=== PATIENT | male | born 1945 | race Caucasian/White ===

== ENCOUNTER → 2016-07-27 | Outpatient (CLI) | payer OTHER ==
[2015-02-07 11:07] VITALS: BP 133/76
[~2016-07-27] MED LIST: LEXISCAN IV ONE; PROVENTIL NEB TX 0.083% 2.5MG/ 3ML ONE
[2016-07-27] MEDS: PROVENTIL NEB TX 0.083% 2.5MG/ 3ML NEB ONE (13:30)
== END ==
LOC: RAD 08:41
PROVIDERS: ATTEND Surgery
DX: Z01.810 Encounter for preprocedural cardiovascular examination (principal); R42 Dizziness and giddiness; R51 Headache
CPT/HCPCS: 78452; 93017; 94060; 94729; A4222; A9502; J2785; J7613

== ENCOUNTER 2016-11-08 16:52 | Emergency (ER) | payer OTHER ==
[2016-11-08 16:58] VITALS: BP 133/76
[2016-11-08 17:03] VITALS: BMI 23.8
[2016-11-08] MEDS ORDERED: STERILE WATER IRRIGATION IR ONE (17:09)
--- NOTE | 2016-11-08 17:39 | RAD ---
HISTORY: pain Study: PEG tube placement Comparison: None Findings: Approximately 50 cc of Gastrografin was injected in the patient's PEG tube and a KUB was obtained . There is a PEG tube localized along the left upper quadrant with contrast seen extending into a loop of small bowel in the area. There is no extravasation seen. The gas pattern is unremarkable. No breanna al stones are seen. IMPRESSION: PEG tube along the left upper quadrant which appears within a loop of small bowel along the left upp er quadrant. Nonspecific gas pattern. Reported By:
--- NOTE | 2016-11-08 18:12 | DR.GENAD ---
HPI - PCP Primary Care Physician: ANAND - HPI Comment HPI Comment: PATIENT LIGALLY BLIND. SIZE 14F PEG TUBE CAME OUT. DENIES PAIN. - Complaint/Symptoms Chief Complaint Doctors Comments: FEEDING TUBE FELL OUT AT HOME SHORTLY BEFORE COMING TO ED. Chief Complaint:: PATIENT STATED HE WAS AT HOME AND ROLLED OVER AND HIS FEEDING TUBE FELL OUT. - Nurses notes reviewed Nurses Notes Review: Yes - Source History Provided: Patient - Mode of Arrival Mode of Arrival: Ambulatory - Timing Onset of Chief Complaint: 11/08/16 Came on: Suddenly - Duration Duration: Since Onset Duration: Hours - Severity Severity: Moderate PMH - PMH Past Medical History: Yes Past Medical History: Diabetes, Hypertension Past Surgical History: No Past Surgical History Comment: FEEDING TUBE PLACEMENT, CHEST TUBE - Family History History of Family Medical Conditions: Yes Family Medical History: Diabetes Mellitus, Hypertension - Social History Does patient currently use any type of tobacco product: No Have you used tobacco products in the last 12 months: No Type of Tobacco Use: None Does any household member use tobacco: Yes Alcohol Use: None Do you use any recreational Drugs:: No Lives With: Family Lives Where: Home - infectious screening In the last 2 months have you had wt loss of >10#?: NO Have you had fever, night sweats or hemotysis?: No Have you traveled outside the country in the last 6 months?: No Isolation: Standard ROS - Review of Systems Constitutional: No Symptoms Reported Eyes: Other (BLIND) ENTM: No Symptoms Reported Respiratoy: No Symptoms Reported Cardiovascular: No Symptoms Reported Gastrointestinal/Abdominal: Other (PEG TUBE OUT.) Genitourinary: No Symptoms Reported Neurological: No Symptoms Reported Musculoskeletal: No Symptoms Reported Integumentary: No Symptoms Reported Hematologic/Lymphatic: No Symptoms Reported Endocrine: No Symptoms Reported All Other Systems: Reviewed and Negative PE - Vital Signs Vitals: Blood Pressure 133/76 - General Limitations: No Limitations General Appearance: Alert - Head Head Exam: Normal Inspection - Eyes Eye exam: Normal Appearance (BLINDNESS.), Other - ENT ENT Exam: Normal External Ear Exam External Ear Exam: Normal External Inspection Throat Exam: Normal Inspection - Neck Neck Exam: Trachea Midline - Chest Chest Inspection: Symmetric Chest Wall Rise - Respiratory Respiratory Exam: Normal Lung Sounds Bilat Respiratory Exam: Bilateral Clear to Auscultation - Cardiovascular Cardiovascular Exam: Regular Rate, Normal Rhythm, Normal Heart Sounds - Abdominal Exam Abdominal Exam: Normal Bowel Sounds, Soft. negative: Tenderness - Extremities Extremities Exam: Normal Inspection - Back Back Exam: Normal Inspection - Neurologic Neurological Exam: Alert, Oriented X3 - Psychiatric Psychiatric Exam: Normal Affect - Skin Skin Exam: Normal Color MDM - Additional Information Additional Information Obtained From: Family - Differential Diagnosis Differential Diagnosis: PEG TUBE OUT. Course - Treatment Treatment: SEE ORDERS. PEG TUBE SIZE 14F INSERTED BY NURSE. GASTROGRAFIN KUB, TUBE IN PLACE. - Reevaluation 1st: Improved - Education/Counseling Education/Counseling: Patient, Family, Education Educated On: Diagnosis, Needs for Follow Up ROR - XRAY XRAY Interpreted by: Radiologist XRAY Findings: PEG TUBE IN PLACE. - Diagnosis Discharge Problem: PEG tube malfunction - Discharge Plan Disposition: 01 HOME, SELF-CARE Condition: Stable - Follow ups/Referrals Follow ups/Referrals: YONNY MICHEL [Primary Care Provider] - 3 days - Instructions Instructions: Gastrostomy Tube Replacement, Care After Additional Instructions: RETURN TO ED IF WORSE.
== END 2016-11-08 18:33 | disposition home or self-care (01) ==
LOC: ER 17:07
PROC: 0D20XUZ Change Feeding Device in Upper Intestinal Tract, External Approach (ICD-10-PCS; principal; 2016-11-08)
DX: K94.23 Gastrostomy malfunction (principal)
CPT/HCPCS: 74000; 99282; A4217

== ENCOUNTER → 2016-11-30 | Outpatient (CLI) | payer OTHER ==
[2016-11-08 16:58] VITALS: BP 133/76
[2016-11-30 10:00] LABS: ALANINE AMINOTRANSFERASE 26 Units/L (12-78); ALBUMIN 3.2 g/dL (3.4-5.0); ALKALINE PHOSPHATASE 83 Units/L (46-116); ASPARTATE AMINO TRANSFERASE 20 Units/L (15-37); BLOOD UREA NITROGEN 8 mg/dL (7-18); CALCIUM 8.6 mg/dL (8.5-10.1); CARBON DIOXIDE 32.2 mmol/L (21-32); CHLORIDE 101 mmol/L (98-107); COR CA(FOR HYPOALB) 9.2 mg/dL (8.5-10.1); COR NA(FOR HYPERGLY) 139 mmol/L (136-145); CREATININE 0.63 mg/dL (0.70-1.30); GLUCOSE 187 mg/dL (65-99); SODIUM 137 mmol/L (136-145); eGFR BLACK RACES > 60 (>60); eGFR NON BLACK RACES > 60 (>60)
[2016-11-30 11:00] LABS: BASOPHILS % (AUTO) 0.6 % (0.2-1.0); EOSINOPHILS # (AUTO) 0.1 x10^3/uL (0.0-0.2); EOSINOPHILS % (AUTO) 2.1 % (0.9-2.9); HEMATOCRIT 39.8 % (42.0-54.0); HEMOGLOBIN 13.3 g/dL (13.5-18.0); LYMPHOCYTES # (AUTO) 1.1 X10^3/uL (1.3-2.9); LYMPHOCYTES % (AUTO) 18.7 % (21.0-51.0); MEAN CORPUSCULAR HEMOGLOBIN 27.1 pg (27.0-34.0); MEAN CORPUSCULAR HGB CONC 33.5 g/dL (33.0-35.0); MEAN PLATELET VOLUME 8.1 fL (7.4-11.0); MONOCYTES # (AUTO) 0.6 x10^3/uL (0.3-0.8); MONOCYTES % (AUTO) 9.5 % (0.0-13.0); NEUTROPHILS # (AUTO) 4.1 x10^3/uL (2.2-4.8); NEUTROPHILS % (AUTO) 69.1 % (42.0-75.0); PLATELET COUNT 279 X10^3/uL (150.0-450.0); RED BLOOD COUNT 4.91 X10^6/uL (4.7-6.0); RED CELL DISTRIBUTION WIDTH 15.1 % (11.6-16.5); WHITE BLOOD COUNT 5.9 X10^3/uL (3.6-10.0)
== END ==
LOC: LAB 08:57
PROVIDERS: ATTEND Internal Medicine Hematology & Oncology
DX: C15.5 Malignant neoplasm of lower third of esophagus (principal)
CPT/HCPCS: 36415; 80053; 85025

== ENCOUNTER 2017-01-14 07:44 | Day surgery (SDC) | payer OTHER ==
[2017-01-14] MEDS ORDERED: D5 LR 1000 ML 1,000 ML IV ONE (07:46)
[2017-01-14] MEDS ORDERED: DIPRIVAN VIAL 20 ML ONE (09:24)
[2017-01-14 10:35] VITALS: BP 115/74
== END 2017-01-14 10:05 | disposition home or self-care (01) ==
LOC: SURG1 07:44
PROVIDERS: ATTEND Internal Medicine Gastroenterology
PROC: 0DJ08ZZ Inspection of Upper Intestinal Tract, Via Natural or Artificial Opening Endoscopic (ICD-10-PCS; principal; 2017-01-14 09:45)
PROC: 0DB58ZX Excision of Esophagus, Via Natural or Artificial Opening Endoscopic, Diagnostic (ICD-10-PCS; principal; 2017-01-14 09:45)
PROC: 0D757ZZ Dilation of Esophagus, Via Natural or Artificial Opening (ICD-10-PCS; principal; 2017-01-14 09:45)
DX: Z85.01 Personal history of malignant neoplasm of esophagus (principal); K21.9 Gastro-esophageal reflux disease without esophagitis; B37.81 Candidal esophagitis; Z90.49 Acquired absence of other specified parts of digestive tract; K22.2 Esophageal obstruction; K22.8 Other specified diseases of esophagus; K29.60 Other gastritis without bleeding
CPT/HCPCS: A4217; J3490; J7120

== ENCOUNTER 2017-04-14 12:50 | Inpatient (IN) | payer OTHER ==
--- NOTE | 2017-04-14 13:06 | DR.EXTPAIN ---
HPI - Time seen Time seen: 13:05 - PCP Primary Care Physician: Morgan MICHEL RN - HPI Comment HPI Comment: WORSE TODAY. DIFFICULTY WALKING. NO FEVER. C SLIGHT DRAINAGE BETWEEN TOES. - Complaint/Symptoms Chief Complaint Doctor Comments: PAIN, REDNESS LEFT FOOT WITH ULCER AND NECRITIC TISSUES BETWEEN TOES TIMES 2 WEEKS. Chief Complaint:: PT. C/O LEFT FOOT PAIN AND SWELLING. DENINES INJURY. - Nurses notes reviewed Nurses Notes Review: Yes - Source History Provided: Patient - Mode of arrival Mode of Arrival: Wheelchair - Timing Onset of Chief Complaint: 03/31/17 - Context History of: None - Associated signs and symptoms Associated Signs and Symptoms: Pain PMH - PMH Past Medical History: Yes Past Medical History: Diabetes, Hypertension Past Medical History Comment: ESOPHAGEAL CANCER Past Surgical History: Yes Past Surgical History Comment: CANCER REMOVAL - Family History History of Family Medical Conditions: Yes Family Medical History: Diabetes Mellitus, Hypertension - Social History Does patient currently use any type of tobacco product: No Have you used tobacco products in the last 12 months: No Type of Tobacco Use: None Does any household member use tobacco: No Alcohol Use: None Do you use any recreational Drugs:: No Lives With: Spouse Lives Where: Home - infectious screening In the last 2 months have you had wt loss of >10#?: NO Have you had fever, night sweats or hemotysis?: No Have you traveled outside the country in the last 6 months?: No Isolation: Standard ROS - Review of Systems Constitutional: Weakness, Fatigue. negative: Chills, Fever Eyes: negative: Eye Pain, Discharge ENTM: negative: Ear Pain, Nose Discharge, Nose Congestion, Throat Pain Respiratoy: Short of Breath (ON EXERTION). negative: Productive Cough, Wheezing , Hemoptysis Cardiovascular: No Symptoms Reported Gastrointestinal/Abdominal: No Symptoms Reported Genitourinary: No Symptoms Reported Neurological: Weakness Musculoskeletal: Left, Foot Integumentary: Change in Color, Lesions, Wound (LT FOOT) Endocrine: negative: Flushing, Increased Thirst, Increased Urine All Other Systems: Reviewed and Negative PE - Vital Signs Vitals: Temperature 97.3 F Pulse Rate [Left Brachial] 101 Pulse Rate 116 Respiratory Rate 17 Blood Pressure [Left Arm] 117/77 Blood Pressure 97/58 O2 Sat by Pulse Oximetry 99 - General Limitations: No Limitations General Appearance: Alert - Head Head Exam: Normal Inspection - Eyes Eye exam: Normal Appearance - ENT ENT Exam: Normal External Ear Exam - Neck Neck Exam: Normal Inspection - Chest Chest Inspection: Symmetric Chest Wall Rise - Respiratory Respiratory Exam: Normal Lung Sounds Bilat Respiratory Exam: Bilateral Rhonchi, Upper Rhonchi, Lower Rhonchi - Cardiovascular Cardiovascular Exam: Regular Rate, Normal Rhythm, Normal Heart Sounds - Abdominal Exam Abdominal Exam: Normal Bowel Sounds, Soft. negative: Tenderness - Extremities Extremities Exam: Tenderness (ULCERS WEB SPACES WITH REDNESS LT FOOT.) - Back Back Exam: Normal Inspection - Neurological Neurological Exam: Alert, Oriented X3 - Psychiatric Psychiatric Exam: Normal Affect, Normal Mood - Skin Skin Exam: Erythema Type of Lesion: Other (ULCERS BETWEEN TOES.) MDM - Differential Diagnosis Differential Diagnosis: Other (OSTEOMYELITIS, DIABETIC FOOT ULCER, CELLULITIS.) Course - Treatment Treatment: SEE ORDERS. - Consultation Consultation Comments: DISCUSS PATIENT WITH DR. TEE. HE WILL ADMIT HIM TO HOSPITAL. - Education/Counseling Education/Counseling: Patient, Family, Education Educated On: Treatment, Diagnosis, Needs for Follow Up ROR - Labs Reviewed Laboratory Results Reviewed?: Yes Result Diagrams: 04/18/17 05:20 04/18/17 05:20 Laboratory: 04/14/17 13:26 Blood Blood Culture - Preliminary 04/14/17 13:20 Blood Blood Culture - Preliminary WBC 9.5 X10^3/uL (3.6-10.0) 04/18/17 05:20 RBC 3.76 X10^6/uL (4.7-6.0) L 04/18/17 05:20 Hgb 11.3 g/dL (13.5-18.0) L 04/18/17 05:20 Hct 31.8 % (42.0-54.0) L 04/18/17 05:20 MCV 84.7 fL (80.0-100.0) 04/18/17 05:20 MCH 30.0 pg (27.0-34.0) 04/18/17 05:20 MCHC 35.4 g/dL (33.0-35.0) H 04/18/17 05:20 RDW 13.7 % (11.6-16.5) 04/18/17 05:20 Plt Count 370 X10^3/uL (150.0-450.0) 04/18/17 05:20 MPV 7.1 fL (7.4-11.0) L 04/18/17 05:20 Neut % 83.0 % (42.0-75.0) H 04/18/17 05:20 Lymph % 7.9 % (21.0-51.0) L 04/18/17 05:20 [place] % 8.4 % (0.0-13.0) 04/18/17 05:20 Eos % 0.4 % (0.9-2.9) L 04/18/17 05:20 Baso % 0.3 % (0.2-1.0) 04/18/17 05:20 Neut # 7.9 x10^3/uL (2.2-4.8) H 04/18/17 05:20 Lymph # 0.8 X10^3/uL (1.3-2.9) L 04/18/17 05:20 [place] # 0.8 x10^3/uL (0.3-0.8) 04/18/17 05:20 Eos # 0.0 x10^3/uL (0.0-0.2) 04/18/17 05:20 Baso # 0.0 X10^3/uL (0.0-0.1) 04/18/17 05:20 Absolute Nucleated RBC 0.0 /100WBC 04/18/17 05:20 INR Target Range - 04/15/17 14:02 INR 1.22 (0.8-1.3) 04/15/17 14:02 PTT 39.1 SECONDS (22.9-36.5) H 04/15/17 14:02 PTT Comment - 04/15/17 14:02 Sodium 140 mmol/L (136-145) 04/18/17 05:20 Corrected Sodium TNP 04/18/17 05:20 Potassium 3.1 mmol/L (3.5-5.1) L 04/18/17 05:20 Chloride 104 mmol/L (98-107) 04/18/17 05:20 Carbon Dioxide 27.9 mmol/L (21-32) 04/18/17 05:20 BUN 4 mg/dL (7-18) L 04/18/17 05:20 Creatinine 0.49 mg/dL (0.70-1.30) L 04/18/17 05:20 Est GFR (MDRD) Af Amer > 60 (>60) 04/18/17 05:20 Est GFR (MDRD) Non-Af > 60 (>60) 04/18/17 05:20 Glucose 79 mg/dL (65-99) 04/18/17 05:20 POC Glucose (mg/dL) 78 mg/dL (65-99) 04/18/17 06:27 Lactic Acid 2.0 mmol/L (0.4-2.0) 04/14/17 13:20 Calcium 7.9 mg/dL (8.5-10.1) L 04/18/17 05:20 Corrected Calcium 9.7 mg/dL (8.5-10.1) 04/18/17 05:20 Magnesium 1.5 mg/dL (1.7-2.9) L 04/18/17 05:15 Total Bilirubin 0.60 mg/dL (0.2-1.0) 04/18/17 05:20 AST 22 Units/L (15-37) 04/18/17 05:20 ALT 11 Units/L (12-78) L 04/18/17 05:20 Alkaline Phosphatase 98 Units/L (46-116) 04/18/17 05:20 C-Reactive Protein 65.20 mg/L (0-3.0) H 04/14/17 13:20 Total Protein 5.2 g/dL (6.4-8.2) L 04/18/17 05:20 Albumin 1.7 g/dL (3.4-5.0) L 04/18/17 05:20 Globulin 3.5 g/dL (2.5-4.5) 04/18/17 05:20 Albumin/Globulin Ratio 0.5 Ratio (1.1-2.1) L 04/18/17 05:20 Vancomycin Trough 12.1 ug/mL (15-20) L 04/17/17 09:00 Acetone, Semi-Quant Negative (NEGATIVE) 04/14/17 13:20 - XRAY XRAY Interpreted by: Radiologist XRAY Findings: REPORT DISCUSS WITH PATIENT. - Diagnosis Discharge Problem: Diabetic infection of left foot Cellulitis Qualifiers: Site of cellulitis: extremity Site of cellulitis of extremity: lower extremity Laterality: left Qualified Code(s): L03.116 - Cellulitis of left lower limb - Discharge Plan Disposition: ADMITTED INPATIENT Condition: Stable - Follow ups/Referrals - Instructions
[2017-04-14 13:36] LABS: BASOPHILS % (AUTO) 0.2 % (0.2-1.0); EOSINOPHILS % (AUTO) 0.3 % (0.9-2.9); HEMATOCRIT 38.3 % (42.0-54.0); HEMOGLOBIN 13.1 g/dL (13.5-18.0); LYMPHOCYTES # (AUTO) 0.8 X10^3/uL (1.3-2.9); LYMPHOCYTES % (AUTO) 6.3 % (21.0-51.0); MEAN CORPUSCULAR HEMOGLOBIN 29.4 pg (27.0-34.0); MEAN CORPUSCULAR HGB CONC 34.1 g/dL (33.0-35.0); MEAN CORPUSCULAR VOLUME 86.2 fL (80.0-100.0); MEAN PLATELET VOLUME 7.3 fL (7.4-11.0); MONOCYTES % (AUTO) 8.3 % (0.0-13.0); NEUTROPHILS # (AUTO) 10.5 x10^3/uL (2.2-4.8); NEUTROPHILS % (AUTO) 84.9 % (42.0-75.0); PLATELET COUNT 387 X10^3/uL (150.0-450.0); RED BLOOD COUNT 4.45 X10^6/uL (4.7-6.0); RED CELL DISTRIBUTION WIDTH 13.5 % (11.6-16.5); WHITE BLOOD COUNT 12.4 X10^3/uL (3.6-10.0)
[2017-04-14 13:46] LABS: ALANINE AMINOTRANSFERASE 17 Units/L (12-78); ALBUMIN 2.3 g/dL (3.4-5.0); ALKALINE PHOSPHATASE 149 Units/L (46-116); ASPARTATE AMINO TRANSFERASE 21 Units/L (15-37); BLOOD UREA NITROGEN 7 mg/dL (7-18); CALCIUM 8.4 mg/dL (8.5-10.1); CARBON DIOXIDE 31.5 mmol/L (21-32); CHLORIDE 101 mmol/L (98-107); COR CA(FOR HYPOALB) 9.8 mg/dL (8.5-10.1); COR NA(FOR HYPERGLY) 140 mmol/L (136-145); CREATININE 0.64 mg/dL (0.70-1.30); SODIUM 138 mmol/L (136-145); TOTAL PROTEIN 5.9 g/dL (6.4-8.2); eGFR BLACK RACES > 60 (>60); eGFR NON BLACK RACES > 60 (>60)
[2017-04-14] MEDS: NS 1000 ML 1,000 ML IV SCH (13:52)
--- NOTE | 2017-04-14 13:53 | RAD ---
Examination: Left foot, three views History: Pain and swelling, no injury, diabetes Findings: Osteopenia and soft tissue swelling. No acute fracture, dislocation, erosive arthropathy or bone destruction. There is no evidence for osteomyelitis at this time. Impression: Nonspecific soft tissue swelling and osteopenia. Reported By:
[2017-04-14] MEDS ORDERED: ZOSYN VIAL 3.375 GM 3.375 GM in NS 100 ML IV + SPIKE MINIBAG* 100 ML IV ONE (13:54)
[2017-04-14] MEDS ORDERED: ZOSYN VIAL 3.375 GM IV ONE (14:11)
[2017-04-14] MEDS ORDERED: NS 100 ML IV + SPIKE MINIBAG* 100 ML IV ONE (14:11)
[2017-04-14] MEDS ORDERED: PHARMACY CONSULT - VANCOMYCIN XX SCH (15:00)
[2017-04-14] MEDS ORDERED: VANCOMYCIN 1 GM PREMIX (ADDVANTAGE) 250 ML IV ONE (17:54)
[2017-04-14] MEDS: VANCOMYCIN HCL 1 GM VIAL 1 GM in D5W 250 ML IV 250 ML IV SCH ×2 (18:01→21:11)
[2017-04-14] MEDS: ZOSYN VIAL 3.375 GM 3.375 GM in NS 100 ML IV 100 ML IV SCH (21:20)
[2017-04-15 05:03] LABS: BASOPHILS % (AUTO) 0.3 % (0.2-1.0); EOSINOPHILS % (AUTO) 0.3 % (0.9-2.9); HEMATOCRIT 34.6 % (42.0-54.0); HEMOGLOBIN 12.1 g/dL (13.5-18.0); LYMPHOCYTES # (AUTO) 0.7 X10^3/uL (1.3-2.9); LYMPHOCYTES % (AUTO) 6.2 % (21.0-51.0); MEAN CORPUSCULAR HEMOGLOBIN 30.1 pg (27.0-34.0); MEAN CORPUSCULAR HGB CONC 35.2 g/dL (33.0-35.0); MEAN CORPUSCULAR VOLUME 85.7 fL (80.0-100.0); MEAN PLATELET VOLUME 7.7 fL (7.4-11.0); MONOCYTES % (AUTO) 9.4 % (0.0-13.0); NEUTROPHILS # (AUTO) 9.1 x10^3/uL (2.2-4.8); NEUTROPHILS % (AUTO) 83.8 % (42.0-75.0); PLATELET COUNT 326 X10^3/uL (150.0-450.0); RED BLOOD COUNT 4.03 X10^6/uL (4.7-6.0); RED CELL DISTRIBUTION WIDTH 13.8 % (11.6-16.5); WHITE BLOOD COUNT 10.9 X10^3/uL (3.6-10.0)
[2017-04-15 05:13] LABS: ALANINE AMINOTRANSFERASE 8 Units/L (12-78); ALBUMIN 1.9 g/dL (3.4-5.0); ALKALINE PHOSPHATASE 131 Units/L (46-116); ASPARTATE AMINO TRANSFERASE 18 Units/L (15-37); BLOOD UREA NITROGEN 8 mg/dL (7-18); CALCIUM 8.1 mg/dL (8.5-10.1); CARBON DIOXIDE 31.2 mmol/L (21-32); CHLORIDE 103 mmol/L (98-107); COR CA(FOR HYPOALB) 9.8 mg/dL (8.5-10.1); COR NA(FOR HYPERGLY) 139 mmol/L (136-145); CREATININE 0.65 mg/dL (0.70-1.30); SODIUM 138 mmol/L (136-145); TOTAL PROTEIN 5.2 g/dL (6.4-8.2); eGFR BLACK RACES > 60 (>60); eGFR NON BLACK RACES > 60 (>60)
[2017-04-15] MEDS: ZOSYN VIAL 3.375 GM 3.375 GM in NS 100 ML IV 100 ML IV SCH ×3 (05:38→22:14)
[2017-04-15] MEDS: NS 1000 ML 1,000 ML IV SCH ×2 (05:38→17:16)
[2017-04-15] MEDS: ZOFRAN INJ 4 MG VIAL IVP PRN ×2 (07:23→13:24)
[2017-04-15] MEDS: VANCOMYCIN HCL 1 GM VIAL 1 GM in NS 250 ML IV 250 ML IV SCH ×3 (09:41→22:14)
[2017-04-15 10:20] VITALS: BMI 17.6
[2017-04-15] MEDS: HEPARIN SODIUM INJ 5000 UNITS SC SCH ×2 (14:30→22:16)
[2017-04-15] MEDS: COLACE CAP 100 MG PO SCH ×2 (22:10→22:16)
[2017-04-15] MEDS: LINZESS PO STA ×2 (22:11→22:12)
[2017-04-16 05:10] LABS: BASOPHILS % (AUTO) 0.3 % (0.2-1.0); HEMATOCRIT 31.4 % (42.0-54.0); HEMOGLOBIN 10.9 g/dL (13.5-18.0); LYMPHOCYTES # (AUTO) 0.7 X10^3/uL (1.3-2.9); LYMPHOCYTES % (AUTO) 6.6 % (21.0-51.0); MEAN CORPUSCULAR HEMOGLOBIN 29.9 pg (27.0-34.0); MEAN CORPUSCULAR HGB CONC 34.7 g/dL (33.0-35.0); MEAN CORPUSCULAR VOLUME 86.1 fL (80.0-100.0); MEAN PLATELET VOLUME 7.5 fL (7.4-11.0); MONOCYTES # (AUTO) 0.7 x10^3/uL (0.3-0.8); MONOCYTES % (AUTO) 7.1 % (0.0-13.0); NEUTROPHILS # (AUTO) 8.6 x10^3/uL (2.2-4.8); PLATELET COUNT 338 X10^3/uL (150.0-450.0); RED BLOOD COUNT 3.64 X10^6/uL (4.7-6.0); RED CELL DISTRIBUTION WIDTH 13.6 % (11.6-16.5)
[2017-04-16 05:35] LABS: ALANINE AMINOTRANSFERASE 12 Units/L (12-78); ALBUMIN 1.7 g/dL (3.4-5.0); ALKALINE PHOSPHATASE 114 Units/L (46-116); ASPARTATE AMINO TRANSFERASE 18 Units/L (15-37); BLOOD UREA NITROGEN 10 mg/dL (7-18); CALCIUM 7.6 mg/dL (8.5-10.1); CHLORIDE 104 mmol/L (98-107); COR CA(FOR HYPOALB) 9.4 mg/dL (8.5-10.1); CREATININE 0.54 mg/dL (0.70-1.30); SODIUM 138 mmol/L (136-145); eGFR BLACK RACES > 60 (>60); eGFR NON BLACK RACES > 60 (>60)
[2017-04-16] MEDS: NS 1000 ML 1,000 ML IV SCH (06:18)
[2017-04-16] MEDS: ZOSYN VIAL 3.375 GM 3.375 GM in NS 100 ML IV 100 ML IV SCH ×3 (06:21→21:19)
[2017-04-16] MEDS ORDERED: HIBICLENS WASH ONE (09:23)
[2017-04-16] MEDS: HEPARIN SODIUM INJ 5000 UNITS SC SCH ×2 (10:38→21:21)
[2017-04-16] MEDS: VANCOMYCIN HCL 1 GM VIAL 1 GM in NS 250 ML IV 250 ML IV SCH ×2 (10:39→21:18)
--- NOTE | 2017-04-16 15:57 | DR.CONSULT ---
Consult - Consultation for Day of: Date: 04/16/17 - Chief Complaint Chief Complaint: Left foot pain and edema. - Allergies Allergies/Adverse Reactions: Allergies Allergy/AdvReac Type Severity Reaction Status Date / Time No Known Drug Allergies Allergy Verified 04/14/17 15:16 - History of Present Illness History of Present Illness: The patient is a 71 year old male who presented to the hospital with worsening left foot pain. The stated the foot became edematous and red a few days prior to arrival. Initially, there was no drainage but now a small amount was noted at dressing changes. The patient denies any trauma. (-) h/o PAD. (+) DM. The patient did fall and injure left knee but denies any skin break at foot. XR's in the ER failed to demonstrate any OM. The patient has been admitted and started on IV abx. - Past Medical History Past Medical History: Diabetes, Hypertension - Past Surgical History Surgical History: Other - Family History Family Medical History: Diabetes Mellitus, Cancer, Hypertension - Social History Does patient currently use any type of tobacco product: No Have you used tobacco products in the last 12 months: No Type of Tobacco Use: None Does any household member use tobacco: Yes (GIRLFRIEND) Alcohol Use: None Drug Use: Prescription Drugs - Medications Home Medications: Ferrous Sulfate 325 mg PO BID 04/14/17 [History Confirmed 04/14/17] Lisinopril [ZESTRIL *] 10 mg PO DAILY 04/14/17 [History Confirmed 04/14/17] Lorazepam [Ativan] 0.5 mg PO HS PRN 04/14/17 [History Confirmed 04/14/17] Metoprolol Tartrate [Lopressor Tab 25 mg] 12.5 mg PO BID 04/14/17 [History Confirmed 04/14/17] Oxycodone HCl [ROXICODONE TAB 5 MG (PLAIN) *] 5 mg PO Q8H PRN 04/14/17 [History Confirmed 04/14/17] - Review of Systems Constitutional: No Symptoms Reported Eyes: Other (Vision impaired.) Respiratory: No Symptoms Reported Cardiovascular: No Symptoms Reported Gastrointestinal: No Symptoms Reported Genitourinary: No Symptoms Reported Musculoskeletal: Leg Pain, Foot Pain Skin: Wound, Ecchymosis Neurological: No Symptoms Reported - Physical Exam Vital Signs: Temperature 98.5 F Pulse Rate [Right Brachial] 91 Pulse Rate [Left Brachial] 87 Pulse Rate 116 Respiratory Rate 18 Blood Pressure [Right Arm] 124/57 Blood Pressure [Left Arm] 131/74 Blood Pressure 97/58 O2 Sat by Pulse Oximetry 98 Oriented: Normal Respiratory: Clear Throughout Cardiovascular: Normal Auscultation: Bowel Sounds: Normal Palpation: Normal Tenderness: Normal Skin: Red (Left dorsal foot distally, near 1-3 metatarsals - mild.), Tender ( Left great toe.), Bruising (Interdigit spaces left 1-3 toes.), Other (Cap refill < 3 seconds. Left femoral artery palp. but DP and PT difficult to palpate. ) Musculoskeletal: Normal Psychiatric: Normal Mood Description: Calm Affect: Normal Speech Pattern: Clear, Appropriate - Plan Plan: 71 year old male with DM and left foot cellulitis. XR's (-) for OM. No obvious abscess or drainable fluid collection. Ecchymoses noted interdigit space. Great toe significantly TTP. Recommend continuation IV abx, MRI to r/o OM, and local wound care / clean skin with chlorhexidine daily. Hopefully no need for surgical intervention. Await further imaging. Tight blood sugar control. Consider lower extremity arterial u/s but usually microvascular disease in diabetics.
[2017-04-16] MEDS: NORCO 5/325 MG TAB PO PRN (16:34)
[2017-04-16] MEDS: MORPHINE SULFATE INJ 2 MG INJ IVP PRN (17:25)
--- NOTE | 2017-04-16 19:36 | MRI ---
MRI of the left forefoot with and without gadolinium. Indication: Swelling of the forefoot with pain. Technique: Multiplanar MRI images of the left foot was obtained with and without gadolinium. Findings: There is fluid with fatty atrophy seen within multiple muscles involving the hind and foref oot. There is a split tear of the inframalleolar peroneal brevis tendon with associated tenosynovitis . The peroneal longus tendon shows no tear but there is tenosynovitis. There is overlying edema. The posterior tibia, flexor digitorum longus and flexor hallucis tendons appear intact. There is incomple te fat saturation of the forefoot on axial imaging which limits evaluation however there does not skye ear to be any evidence of osteomyelitis seen on the sagittal T1 sequences. Anterior and posterior tib iofibular and talofibular ligaments appear intact. There is no fracture. No abnormal enhancement is s een. Conclusion: 1. Split tear of the intermalleolar peroneal brevis tendon with associated tenosynovitis. 2. Diffuse fatty atrophy with muscle edema involving the forefoot. This could be secondary to disuse or denervation. 3. No evidence of osteomyelitis or abscess. Reported By:
[2017-04-16 20:54] LABS: CREATININE 0.46 mg/dL (0.70-1.30)
[2017-04-16] MEDS: COLACE CAP 100 MG PO SCH (20:59)
[2017-04-16 21:16] LABS: VANCOMYCIN,TROUGH 24.8 ug/mL (15-20)
[2017-04-17] MEDS: ZOSYN VIAL 3.375 GM 3.375 GM in NS 100 ML IV 100 ML IV SCH ×3 (05:54→21:32)
[2017-04-17] MEDS: NORCO 5/325 MG TAB PO PRN (09:22)
[2017-04-17] MEDS: HEPARIN SODIUM INJ 5000 UNITS SC SCH ×2 (09:23→21:35)
[2017-04-17 09:47] LABS: CREATININE 0.58 mg/dL (0.70-1.30); VANCOMYCIN,TROUGH 12.1 ug/mL (15-20)
[2017-04-17] MEDS: VANCOMYCIN HCL IV SCH ×2 (10:59→21:32)
[2017-04-17] MEDS: NS IV SCH ×2 (10:59→21:32)
[2017-04-17] MEDS: COLACE CAP 100 MG PO SCH (21:35)
[2017-04-17] MEDS: NS 1000 ML 1,000 ML IV SCH (21:38)
[2017-04-17] MEDS: MORPHINE SULFATE INJ 2 MG INJ IVP PRN (21:49)
[2017-04-18 06:02] LABS: BASOPHILS % (AUTO) 0.3 % (0.2-1.0); EOSINOPHILS % (AUTO) 0.4 % (0.9-2.9); HEMATOCRIT 31.8 % (42.0-54.0); HEMOGLOBIN 11.3 g/dL (13.5-18.0); LYMPHOCYTES # (AUTO) 0.8 X10^3/uL (1.3-2.9); LYMPHOCYTES % (AUTO) 7.9 % (21.0-51.0); MEAN CORPUSCULAR HGB CONC 35.4 g/dL (33.0-35.0); MEAN CORPUSCULAR VOLUME 84.7 fL (80.0-100.0); MEAN PLATELET VOLUME 7.1 fL (7.4-11.0); MONOCYTES # (AUTO) 0.8 x10^3/uL (0.3-0.8); MONOCYTES % (AUTO) 8.4 % (0.0-13.0); NEUTROPHILS # (AUTO) 7.9 x10^3/uL (2.2-4.8); PLATELET COUNT 370 X10^3/uL (150.0-450.0); RED BLOOD COUNT 3.76 X10^6/uL (4.7-6.0); RED CELL DISTRIBUTION WIDTH 13.7 % (11.6-16.5); WHITE BLOOD COUNT 9.5 X10^3/uL (3.6-10.0)
[2017-04-18] MEDS: ZOSYN VIAL 3.375 GM 3.375 GM in NS 100 ML IV 100 ML IV SCH ×3 (06:14→21:34)
[2017-04-18 06:16] LABS: ALANINE AMINOTRANSFERASE 11 Units/L (12-78); ALBUMIN 1.7 g/dL (3.4-5.0); ALKALINE PHOSPHATASE 98 Units/L (46-116); ASPARTATE AMINO TRANSFERASE 22 Units/L (15-37); BLOOD UREA NITROGEN 4 mg/dL (7-18); CALCIUM 7.9 mg/dL (8.5-10.1); CARBON DIOXIDE 27.9 mmol/L (21-32); CHLORIDE 104 mmol/L (98-107); COR CA(FOR HYPOALB) 9.7 mg/dL (8.5-10.1); CREATININE 0.49 mg/dL (0.70-1.30); SODIUM 140 mmol/L (136-145); TOTAL PROTEIN 5.2 g/dL (6.4-8.2); eGFR BLACK RACES > 60 (>60); eGFR NON BLACK RACES > 60 (>60)
[2017-04-18] MEDS ORDERED: K-RIDER 10 MEQ/NS 100 ML 10 MEQ/100 ML BAG IV PRN (06:34)
[2017-04-18] MEDS ORDERED: MAG-OX TAB PO PRN (06:34)
[2017-04-18] MEDS ORDERED: MAGNESIUM SULFATE 1 GM/100 mL PREMIX 1 GM/100 ML BAG IV PRN (06:34)
[2017-04-18] MEDS ORDERED: K-LYTE EFFERVESCENT PO PRN (06:34)
[2017-04-18] MEDS ORDERED: POTASSIUM CHLORIDE LIQ 20 MEQ UDC PO PRN (06:34)
[2017-04-18] MEDS ORDERED: POTASSIUM CHL 60 MEQ/NS 0.45% 500 ML IV PRN (06:34)
[2017-04-18] MEDS ORDERED: POTASSIUM CHL 40 MEQ/NS 0.45% 500 ML IV PRN (06:34)
[2017-04-18] MEDS: HEPARIN SODIUM INJ 5000 UNITS SC SCH ×2 (08:40→22:01)
[2017-04-18] MEDS: NS IV SCH ×2 (09:12→21:34)
[2017-04-18] MEDS: VANCOMYCIN HCL IV SCH ×2 (09:12→21:34)
[2017-04-18] MEDS: NEOSPORIN OINT TOP SCH (10:30)
[2017-04-18] MEDS ORDERED: ROXICODONE TAB 5 MG PO PRN (11:22)
[2017-04-18] MEDS: ZESTRIL TAB 10 MG PO SCH (14:12)
[2017-04-18] MEDS: LOPRESSOR TAB 25 MG PO SCH ×2 (14:12→21:48)
[2017-04-18] MEDS: PROTONIX TAB 40 MG PO SCH ×2 (14:12→21:47)
[2017-04-18] MEDS: ULTRAM PO SCH ×2 (14:12→21:48)
[2017-04-18 21:15] LABS: CREATININE 0.47 mg/dL (0.70-1.30); VANCOMYCIN,TROUGH 15.2 ug/mL (15-20)
[2017-04-18] MEDS: COLACE CAP 100 MG PO SCH (21:47)
[2017-04-18] MEDS: NORCO 5/325 MG TAB PO PRN (21:48)
[2017-04-19] MEDS: ULTRAM PO SCH (05:46)
[2017-04-19] MEDS: ZOSYN VIAL 3.375 GM 3.375 GM in NS 100 ML IV 100 ML IV SCH (05:47)
[2017-04-19] MEDS: NS 1000 ML 1,000 ML IV SCH (05:47)
[2017-04-19 06:20] LABS: BASOPHILS # (AUTO) 0.1 X10^3/uL (0.0-0.1); BASOPHILS % (AUTO) 0.6 % (0.2-1.0); EOSINOPHILS % (AUTO) 0.5 % (0.9-2.9); HEMOGLOBIN 10.9 g/dL (13.5-18.0); LYMPHOCYTES # (AUTO) 0.9 X10^3/uL (1.3-2.9); LYMPHOCYTES % (AUTO) 9.6 % (21.0-51.0); MEAN CORPUSCULAR HGB CONC 35.2 g/dL (33.0-35.0); MEAN CORPUSCULAR VOLUME 85.4 fL (80.0-100.0); MEAN PLATELET VOLUME 7.5 fL (7.4-11.0); MONOCYTES # (AUTO) 0.9 x10^3/uL (0.3-0.8); MONOCYTES % (AUTO) 9.2 % (0.0-13.0); NEUTROPHILS # (AUTO) 7.5 x10^3/uL (2.2-4.8); NEUTROPHILS % (AUTO) 80.1 % (42.0-75.0); PLATELET COUNT 328 X10^3/uL (150.0-450.0); RED BLOOD COUNT 3.63 X10^6/uL (4.7-6.0); RED CELL DISTRIBUTION WIDTH 13.6 % (11.6-16.5); WHITE BLOOD COUNT 9.4 X10^3/uL (3.6-10.0)
[2017-04-19 06:31] LABS: ALANINE AMINOTRANSFERASE 9 Units/L (12-78); ALBUMIN 1.6 g/dL (3.4-5.0); ALKALINE PHOSPHATASE 85 Units/L (46-116); ASPARTATE AMINO TRANSFERASE 18 Units/L (15-37); BLOOD UREA NITROGEN 3 mg/dL (7-18); CALCIUM 7.9 mg/dL (8.5-10.1); CARBON DIOXIDE 27.8 mmol/L (21-32); CHLORIDE 105 mmol/L (98-107); COR CA(FOR HYPOALB) 9.8 mg/dL (8.5-10.1); MAGNESIUM 1.6 mg/dL (1.7-2.9); SODIUM 139 mmol/L (136-145); TOTAL PROTEIN 4.7 g/dL (6.4-8.2); eGFR BLACK RACES > 60 (>60); eGFR NON BLACK RACES > 60 (>60)
[2017-04-19] MEDS: HEPARIN SODIUM INJ 5000 UNITS SC SCH (09:01)
[2017-04-19] MEDS: LOPRESSOR TAB 25 MG PO SCH (09:02)
[2017-04-19] MEDS: ZESTRIL TAB 10 MG PO SCH (09:03)
[2017-04-19] MEDS: PROTONIX TAB 40 MG PO SCH (09:03)
[2017-04-19] MEDS: NEOSPORIN OINT TOP SCH (09:03)
[2017-04-19] MEDS: NS IV SCH (09:03)
[2017-04-19] MEDS: VANCOMYCIN HCL IV SCH (09:03)
[2017-04-19 14:05] VITALS: BP 113/68
== END 2017-04-19 13:15 | disposition home or self-care (01) | DRG 603 ==
LOC: ER 12:59 → MED/SURG 14:15
PROVIDERS: ADMIT Obstetrics & Gynecology Obstetrics; ATTEND Obstetrics & Gynecology Obstetrics
DX: L03.116 Cellulitis of left lower limb (principal); L97.528 Non-pressure chronic ulcer of other part of left foot with other specified severity; E11.621 Type 2 diabetes mellitus with foot ulcer; I10 Essential (primary) hypertension; E87.6 Hypokalemia; R26.89 Other abnormalities of gait and mobility; E11.65 Type 2 diabetes mellitus with hyperglycemia
CPT/HCPCS: 36415; 73630; 73720; 80053; 80202; 82009; 82565; 83605; 83735; 84132; 85025; 85610; 85730; 86140; 87040; 96365; 96374; 99283; 99284; A4222; J1644; J2270; J2405; J2543; J3370